=== PATIENT | male | born 1960 | race Hispanic/Latino ===

== ENCOUNTER 2021-06-08 12:18 | Emergency (ER) | payer OTHER ==
[2021-06-08] MEDS ORDERED: BABY ASPIRIN 81 MG CHEW PO ONE (12:50)
[2021-06-08] MEDS ORDERED: Pepcid 20 MG VIAL IV ONE ×2 (12:50→13:02)
[2021-06-08] MEDS ORDERED: GI COCKTAIL 45 ML (Maalox/Lidocaine) PO ONE (12:51)
--- NOTE | 2021-06-08 12:56 | ERPHSYRPT ---
- History of Present Illness Time Seen by Provider: 06/08/21 12:33 Historian: patient Exam Limitations: no limitations Patient Subjective Stated Complaint: pt here for chest pain to center of chest for since fri, states pain is getting worse, states burning pain, Triage Nursing Assessment: pt alert, resp easy, skin w/d/p.no cough , face mask applied, Physician History: 61 years old male with history of diabetes mellitus presented in the ER with 2 days history of substernal chest pain which she described gradual onset burning sensation across but more in the center with some radiation to the neck and jaw area last night. Aggravated with activity and better with resting without any significant shortness of breath associated with it. No history of CAD or cardiac work-up done in the past. Timing/Duration: day(s) (2), intermittent, gradual onset, worse Activities at Onset: activity Quality: burning, dullness Location: substernal, central Chest Pain Radiation: jaw, neck Severity of Pain-Max: moderate Severity of Pain-Current: mild Modifying Factors: Improves With: rest. Worsens With: exertion, movement Associated Symptoms: denies symptoms Prior Chest Pain/Cardiac Workup: no prior chest pain, no prior cardiac workup Nitro Today/Relief: no nitro taken today Aspirin Treatment Today: no aspirin today Allergies/Adverse Reactions: No Known Drug Allergies Allergy (Verified 06/08/21 12:25) Home Medications: Glipizide Xl 10 mg [Glucotrol Xl 10 MG] 1 ea DAILY 06/08/21 [History] Metformin HCl [Glumetza] 1 ea BID 06/08/21 [History] Hx Tetanus, Diphtheria Vaccination/Date Given: No Hx Influenza Vaccination/Date Given: No Hx Pneumococcal Vaccination/Date Given: No Immunizations Up to Date: No Travel Risk - International Travel Have you traveled outside of the country in past 3 weeks: No - Coronavirus Screening Are you exhibiting any of the following symptoms?: No Close contact with a COVID-19 positive Pt in past 14-21 Days: No - Vaccine Status Have you recieved a Covid-19 vaccination: No - Review of Systems Constitutional: No Symptoms Eyes: No Symptoms Ears, Nose, & Throat: No Symptoms Respiratory: No Symptoms Cardiac: Chest Pain Abdominal/Gastrointestinal: No Symptoms Genitourinary Symptoms: No Symptoms Musculoskeletal: No Symptoms Skin: No Symptoms Psychological: No Symptoms Endocrine: No Symptoms Hematologic/Lymphatic: No Symptoms Immunological/Allergic: No Symptoms - Past Medical History Pertinent Past Medical History: Yes Respiratory History: COPD, Pneumonia Endocrine Medical History: Diabetes Type II - Past Surgical History Past Surgical History: No - Social History Smoking Status: Never smoker Exposure to second hand smoke: No Drug Use: none Patient Lives Alone: No - Nursing Vital Signs Nursing Vital Signs: Initial Vital Signs Temperature 97.3 F 06/08/21 12:20 Pulse Rate 75 06/08/21 12:20 Respiratory Rate 20 06/08/21 12:20 Blood Pressure 183/108 06/08/21 12:20 O2 Sat by Pulse Oximetry 99 06/08/21 12:20 Pain Scale Pain Intensity 4 - Physical Exam General Appearance: no apparent distress, alert Eye Exam: PERRL/EOMI, eyes nml inspection Ears, Nose, Throat Exam: normal ENT inspection, pharynx normal Neck Exam: normal inspection, supple, full range of motion Respiratory Exam: normal breath sounds, lungs clear Cardiovascular Exam: regular rate/rhythm, normal heart sounds Gastrointestinal/Abdomen Exam: soft, normal bowel sounds Back Exam: normal inspection, normal range of motion Extremity Exam: normal inspection, normal range of motion Neurologic Exam: alert, oriented x 3, cooperative Skin Exam: normal color SpO2 Interpretation: normal SpO2: 99 O2 Delivery: Room Air Ordered Tests: Active Orders 24 hr Category Date Time Status Golf Instructor STAT Care 06/08/21 12:50 Completed EKG-ER Only STAT Care 06/08/21 12:50 Completed IV Insertion STAT Care 06/08/21 12:50 Completed CHEST 1 VIEW (PORTABLE) Stat Exams 06/08/21 12:50 Completed CBC W DIFF Stat Lab 06/08/21 13:15 Completed CMP Stat Lab 06/08/21 13:15 Completed NT PRO BNP Stat Lab 06/08/21 13:15 Completed TROPONIN Q3H Lab 06/08/21 13:15 Completed Medication Summary Discontinued Medications Generic Name Dose Route Start Last Admin Trade Name Freq PRN Reason Stop Dose Admin Al Hydrox/Mg Hydrox/Simethicone Confirm 06/08/21 13:03 Maalox Es 30 Ml Unit Dose Administered 06/08/21 13:04 Dose 30 ml .ROUTE .STK-MED ONE Aspirin 324 mg 06/08/21 12:50 06/08/21 13:07 Baby Aspirin 81 Mg Chew PO 06/08/21 12:51 324 mg STAT ONE Administration Aspirin Confirm 06/08/21 13:02 Baby Aspirin 81 Mg Chew Administered 06/08/21 13:03 Dose 324 mg .ROUTE .STK-MED ONE Clopidogrel Bisulfate 300 mg 06/08/21 14:26 06/08/21 14:45 Plavix 75 Mg Tablet PO 06/08/21 14:27 300 mg STAT ONE Administration Clopidogrel Bisulfate Confirm 06/08/21 14:38 Plavix 75 Mg Tablet Administered 06/08/21 14:39 Dose 300 mg .ROUTE .STK-MED ONE Enoxaparin Sodium 60 mg 06/08/21 14:26 06/08/21 14:45 Enoxaparin Sodium SQ 06/08/21 14:27 60 mg STAT ONE Administration Enoxaparin Sodium Confirm 06/08/21 14:38 Enoxaparin Sodium Administered 06/08/21 14:39 Dose 80 mg SQ .STK-MED ONE Famotidine 20 mg 06/08/21 12:50 06/08/21 13:06 Pepcid 20 Mg Vial IV 06/08/21 12:51 20 mg STAT ONE Administration Famotidine Confirm 06/08/21 13:02 Pepcid 20 Mg Vial Administered 06/08/21 13:03 Dose 20 mg IV .STK-MED ONE Lidocaine HCl Confirm 06/08/21 13:03 Xylocaine Hcl Viscous * Administered 06/08/21 13:04 Dose 15 ml .ROUTE .STK-MED ONE Magnesium Hydroxide 45 ml 06/08/21 12:51 06/08/21 13:07 Gi Cocktail 45 Ml (Maalox/Lidocaine) PO 06/08/21 12:52 45 ml STAT ONE Administration Nitroglycerin Confirm 06/08/21 14:05 Nitro-Bid 2% Ud Packets Administered 06/08/21 14:06 Dose 1 gm .ROUTE .STK-MED ONE Nitroglycerin 1 gm 06/08/21 14:36 06/08/21 14:45 Nitro-Bid 2% Ud Packets TOP 06/08/21 14:37 1 gm STAT ONE Administration Lab/Rad Data: Laboratory Result Diagrams 06/08/21 13:15 06/08/21 13:15 Laboratory Results 06/08/21 06/08/21 06/08/21 Range/Units 13:15 13:15 13:15 WBC 8.7 (4.0-10.5) K/mm3 RBC 5.22 (4.1-5.6) M/mm3 Hgb 15.8 (12.5-18.0) gm/dl Hct 45.2 (42-50) % MCV 86.6 (78-100) fl MCH 30.3 (26-32) pg MCHC 35.0 (32-36) g/dl RDW 13.4 (11.5-14.0) % Plt Count 305 (150-450) K/mm3 MPV 10.1 (7.5-11.0) fl Gran % 68.7 H (36.0-66.0) % Eos # (Auto) 0.04 (0-0.5) Absolute Lymphs (auto) 2.23 (1.0-4.6) Absolute Monos (auto) 0.42 (0.0-1.3) Lymphocytes % 25.8 (24.0-44.0) % Monocytes % 4.9 (0.0-12.0) % Eosinophils % 0.5 (0.00-5.0) % Basophils % 0.1 (0.0-0.4) % Absolute Granulocytes 5.95 (1.4-6.9) Basophils # 0.01 (0-0.4) Sodium 135 L (137-145) mmol/L Potassium 4.3 (3.5-5.1) mmol/L Chloride 97 L (98-107) mmol/L Carbon Dioxide 25 (22-30) mmol/L Anion Gap 17.2 H (5-15) MEQ/L BUN 18 (9-20) mg/dL Creatinine 0.60 L (0.66-1.25) mg/dL Estimated GFR > 60.0 ML/MIN Glucose 366 H (74-106) mg/dL Calcium 10.2 (8.4-10.2) mg/dL Total Bilirubin 0.40 (0.2-1.3) mg/dL AST 23 (17-59) U/L ALT 26 (0-50) U/L Alkaline Phosphatase 86 (38-126) U/L Troponin I 0.158 H* (0.000-0.034) ng/mL NT-Pro-B Natriuret Pep 245 (0-900) pg/mL Serum Total Protein 8.1 (6.3-8.2) g/dL Albumin 4.8 (3.5-5.0) g/dL - Progress Progress: improved Air Movement: good Progress Note: 06/08/21 14:28 61 years old is evaluated for intermittent chest pain for the last 2 days especially with exertional activities. EKG showed mild depression in inferior lead and T wave inversion in inferior leads without any obvious ST elevation. Given aspirin and GI cocktail, offered pain medication which he refused. On r eevaluation his pain is much improved. Chest x-ray negative for any acute cardiopulmonary findings, initial troponin 0.15, given Nitropaste. Do not have cardiology services and I believe patient has unstable angina/NSTEMI needs cardiology services and possible cardiac cath either today or tomorrow. Discussed with Dr. Mejia at [facility], reviewed history, work-up and current management, agreed with accepting transfer. Recommended giving a dose of Lovenox and loading with Plavix 300. Plan discussed with patient who understand and agrees with transfer. Blood Culture(s) Obtained: No Antibiotics given: No Discussed with Dr.: Other (Dr. Mejia [facility]) Counseled pt/family regarding: lab results, diagnosis, need for follow-up, rad results - Departure Departure Disposition: Transfer Clinical Impression: NSTEMI (non-ST elevated myocardial infarction) Condition: Stable Critical Care Time: Yes Critical Care Time(excluding separately billable procedures): Critical 30-74 mins Referrals: DOCTOR,NO FAMILY [Primary Care Provider] -
[2021-06-08] MEDS ORDERED: BABY ASPIRIN 81 MG CHEW ONE (13:02)
[2021-06-08] MEDS ORDERED: MAALOX ES 30 ML UNIT DOSE ONE (13:03)
[2021-06-08] MEDS ORDERED: XYLOCAINE HCl Viscous ONE (13:03)
--- NOTE | 2021-06-08 13:21 | XRAY ---
Indication: Chest pain. Comparison: None Portable chest hyperinflated and clear. Heart not enlarged. Bony thorax intact with mild degenerative changes. Impression: Nonacute hyperinflated chest.
[2021-06-08 13:26] LABS: Absolute Neutrophil Ct (ANC) 5.95 (1.4-6.9); BASOPHIL % 0.1 % (0.0-0.4); Basophil (Absolute #) 0.01 (0-0.4); Eosinophil % 0.5 % (0.00-5.0); Eosinophil (Absolute #) 0.04 (0-0.5); Hematocrit 45.2 % (42-50); Hemoglobin 15.8 gm/dl (12.5-18.0); Lymphocyte (Absolute #) 2.23 (1.0-4.6); Lymphocytes % 25.8 % (24.0-44.0); Mean Cell Volume 86.6 fl (78-100); Mean Corpuscular Hemoglobin 30.3 pg (26-32); Mean Platelet Volume 10.1 fl (7.5-11.0); Monocyte (Absolute #) 0.42 (0.0-1.3); Monocytes % 4.9 % (0.0-12.0); Neutrophil % 68.7 % (36.0-66.0); Platelet Count 305 K/mm3 (150-450); Red Blood Count 5.22 M/mm3 (4.1-5.6); Red Cell Distribution Width 13.4 % (11.5-14.0); White Blood Count 8.7 K/mm3 (4.0-10.5)
[2021-06-08 13:46] LABS: ALBUMIN 4.8 g/dL (3.5-5.0); ALKALINE PHOSPHATASE 86 U/L (38-126); ANION GAP 17.2 MEQ/L (5-15); BLOOD UREA NITROGEN 18 mg/dL (9-20); CHLORIDE 97 mmol/L (98-107); Calcium 10.2 mg/dL (8.4-10.2); Carbon Dioxide 25 mmol/L (22-30); EST GLOMERULAR FILTRATION RATE > 60.0 ML/MIN; Glucose 366 mg/dL (74-106); NT PRO BNP 245 pg/mL (0-900); Potassium 4.3 mmol/L (3.5-5.1); SGOT/AST 23 U/L (17-59); SGPT/ALT 26 U/L (0-50); SODIUM 135 mmol/L (137-145); Total Protein 8.1 g/dL (6.3-8.2)
[2021-06-08] MEDS ORDERED: NITRO-BID 2% UD PACKETS ONE (14:05)
[2021-06-08] MEDS ORDERED: PLAVIX 75 MG Tablet PO ONE (14:26)
[2021-06-08] MEDS ORDERED: ENOXAPARIN SODIUM SQ ONE ×2 (14:26→14:38)
[2021-06-08] MEDS ORDERED: NITRO-BID 2% UD PACKETS TOP ONE (14:36)
[2021-06-08] MEDS ORDERED: PLAVIX 75 MG Tablet ONE (14:38)
[2021-06-08 15:31] VITALS: BP 153/90; PULSE 80
[2021-06-08 18:18] VITALS: O2SAT 99
== END 2021-06-08 15:43 | disposition short-term general hospital (02) ==
LOC: ED 12:18
DX: I21.4 Non-ST elevation (NSTEMI) myocardial infarction (principal); R07.89 Other chest pain
CPT/HCPCS: 36000; 36415; 71045; 80053; 83880; 84484; 85025; 93005; 93041; 96372; 96374; 99285; 99291; J1650; A9270-GY

== ENCOUNTER 2024-11-20 14:57 | Emergency (ER) | payer OTHER ==
--- NOTE | 2024-11-20 15:13 | ERPHSYRPT ---
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 Patient was wearing regular glasses. He was not wearing protective eyewear. He has had left eye redness and tearing present. Location: left eye Severity: mild Apparent Injury: yes Associated Symptoms: pain, burning, sensitivity to light, redness, foreign body sensation Visual Assistive Devices: Glasses Chemical Exposure: No Trauma: No Welding Arc/Tanning Bed Exposure: No Allergies/Adverse Reactions: No Known Drug Allergies Allergy (Verified 11/20/24 15:20) Home Medications: Glipizide Xl mg [Glucotrol Xl] 1 ea DAILY 06/08/21 [History] Metformin HCl [Glumetza] 1 ea BID 06/08/21 [History] Hx Tetanus, Diphtheria Vaccination/Date Given: No Hx Influenza Vaccination/Date Given: No Hx Pneumococcal Vaccination/Date Given: No Travel Risk - International Travel Have you traveled outside of the country in past 3 weeks: No - Emerging Infectious Disease Are you exhibiting symptoms associated with any current EIDs: No - Review of Systems Eyes: Eye Pain (Left side), Eye Redness (Left side), Tearing, Foreign Body Sensation, No Vision Changes (Side), No Double Vision Ears, Nose, & Throat: No Symptoms Respiratory: No Symptoms Cardiac: No Symptoms Abdominal/Gastrointestinal: No Symptoms Genitourinary Symptoms: No Symptoms Musculoskeletal: No Symptoms Skin: No Symptoms Neurological: No Symptoms Psychological: No Symptoms Endocrine: No Symptoms Hematologic/Lymphatic: No Symptoms Immunological/Allergic: No Symptoms All Other Systems: Reviewed and Negative - Past Medical History Neurological History: No Pertinent History Cardiac History: Angina, Coronary Artery Disease, Hypertension, Myocardial Infarction ([place]) Respiratory History: COPD, Pneumonia Endocrine Medical History: Diabetes Type II Musculoskeletal History: Arthritis, Fractures - Past Surgical History Past Surgical History: No - Social History Smoking Status: Never smoker Exposure to second hand smoke: No Drug Use: none Patient Lives Alone: No - Nursing Vital Signs Nursing Vital Signs: Initial Vital Signs Temperature 97.6 F 11/20/24 15:12 Pulse Rate 76 11/20/24 15:12 Respiratory Rate 20 11/20/24 15:12 Blood Pressure 153/79 11/20/24 15:12 O2 Sat by Pulse Oximetry 99 11/20/24 15:12 Pain Scale Pain Intensity 10 - Physical Exam General Appearance: no apparent distress, alert, anxiety Eye Exam: right eye: normal inspection, left eye: corneal abrasion (2 o'clock position), bilateral eye: PERRL, EOMI Ears, Nose, Throat Exam: normal ENT inspection, moist mucous membranes Neck Exam: normal inspection, non-tender, supple, full range of motion Respiratory Exam: normal breath sounds, lungs clear, airway intact, No chest t enderness, No respiratory distress Cardiovascular Exam: regular rate/rhythm, normal heart sounds, normal peripheral pulses Gastrointestinal Exam: No tenderness Extremity Exam: normal inspection, normal range of motion, pelvis stable Neurologic: alert, oriented x 3, cooperative, vp global II-XII nml as tested, nml cerebellar function, nml station & gait, sensation nml Skin Exam: normal color, warm, dry Lymphatic: No adenopathy SpO2 Interpretation: normal O2 Delivery: Room Air - Course Nursing assessment & vital signs reviewed: Yes Ordered Tests: Medication Summary Generic Name Dose Route Start Last Admin Trade Name Freq PRN Reason Stop Dose Admin Neomycin/Polymyxin/Hydrocortisone 7.5 ml 11/20/24 17:00 11/20/24 15:52 Neomy Sulf/Polymyx B Sulf/Hc 7.5 Ml Bottle OP 12/20/24 16:59 7.5 ml QID JUSTYN Administration Discontinued Medications Generic Name Dose Route Start Last Admin Trade Name Freq PRN Reason Stop Dose Admin Tetracaine HCl Confirm 11/20/24 15:22 Tetracaine Hcl/Pf 4 Ml Bottle Administered 11/20/24 15:23 Dose 4 ml OP .STK-MED ONE Tetracaine HCl 4 ml 11/20/24 15:37 11/20/24 15:39 Tetracaine Hcl/Pf 4 Ml Bottle OP 11/20/24 15:38 4 ml STAT STA Administration - Progress Progress: unchanged Progress Note: 11/20/24 15:55 My medical decision making in the assignment of low complexity to this patient's medical issue today is based on review of the patient's past medical history, review of the patient's medication list, review of the patient drug allergy list, history present illness and physical findings on examination. The workup of this patient does not require any laboratory or radiographic studies. Differential diagnosis includes but is not limited to conjunctivitis, corneal abrasion Counseled pt/family regarding: diagnosis, need for follow-up Medical Desision Making - Diagnostic Testing Diagnostic test were ordered, analyzed, and reviewed by me: No - Risk of complications The pt has a mod risk of morbidity or mortality based on: Need for prescription drug management - Departure Departure Disposition: Home Clinical Impression: Conjunctivitis, left eye, Left corneal abrasion Condition: Stable Critical Care Time: No Referrals: INGRID MOLINA NP [Primary Care Provider] - Follow up/PCP as directed Additional Instructions: Use your eyedrops as instructed. Call an cigar head stringer or gear shaver set up operator on 11/22/2024, to make an appointment to be seen in the next few days. Take your pain medicine as prescribed if needed. Continue your other medication as prescribed Prescriptions: Hydrocodone/APAP 5/325 [[place] 5/325 mg] 1 each PO Q12H PRN PRN #6 tablet MDD 2 PRN Reason: Pain
[2024-11-20 15:20] VITALS: TEMP 97.6
[2024-11-20] MEDS ORDERED: TETRACAINE 0.5% STERI-UNIT SOL OP ONE (15:22)
[2024-11-20] MEDS: TETRACAINE 0.5% STERI-UNIT SOL OP STA (15:39)
[2024-11-20] MEDS ORDERED: Cortisporin Eye Drops OP ONE (15:51)
[2024-11-20] MEDS: Cortisporin Eye Drops OP SCH (15:52)
[2024-11-20 16:04] VITALS: BP 133/74; PULSE 67; RESP 16; O2SAT 97
== END 2024-11-20 16:09 | disposition home or self-care (01) ==
LOC: ED 14:57
DX: S05.02XA Injury of conjunctiva and corneal abrasion without foreign body, left eye, initial encounter (principal); H10.9 Unspecified conjunctivitis; H57.12 Ocular pain, left eye; I10 Essential (primary) hypertension; E11.9 Type 2 diabetes mellitus without complications; Z79.84 Long term (current) use of oral hypoglycemic drugs; Z79.891 Long term (current) use of opiate analgesic
CPT/HCPCS: 99283; A9270-GY